=== PATIENT | female | born 1985 | race Two or more races ===

== ENCOUNTER 2017-11-10 20:59 | Emergency (ER) | payer SELFPAY ==
[~2017-11-10] VITALS: Ht 162.6 cm; Wt 72.6 kg
[2017-11-11 00:34] VITALS: BP 135/80
[2017-11-11] MEDS ORDERED: MEPERIDINE HCL (50 MG/ML) 1 ML VIAL IM ONE (01:00)
[2017-11-11] MEDS ORDERED: ONDANSETRON ODT 4 MG TAB PO ONE (01:00)
== END 2017-11-11 01:42 | disposition home or self-care (01) ==
LOC: ER 20:59
DX: H66.91 Otitis media, unspecified, right ear (principal)
CPT/HCPCS: 96372; 99283; J2175; Q0162